=== PATIENT | male | born 1995 | race Caucasian/White ===

== ENCOUNTER 2018-09-18 00:51 | Emergency (ER) | payer SELFPAY ==
[~2018-09-18] VITALS: Ht 175.3 cm; Wt 64.5 kg
[2018-09-18 02:49] VITALS: BP 129/84
== END 2018-09-18 03:49 | disposition home or self-care (01) ==
LOC: EMS 00:53
DX: S09.90XA Unspecified injury of head, initial encounter (principal); M54.5 Low back pain; F12.90 Cannabis use, unspecified, uncomplicated; V03.00XA Pedestrian on foot injured in collision with car, pick-up truck or van in nontraffic accident, initial encounter; Y93.89 Activity, other specified; Y92.481 Parking lot as the place of occurrence of the external cause; Y99.8 Other external cause status
CPT/HCPCS: 70450; 72125; 72131

== ENCOUNTER 2018-11-04 21:40 | Emergency (ER) | payer SELFPAY ==
[~2018-11-04] VITALS: Ht 172.7 cm; Wt 63.6 kg
[2018-11-04 21:42] VITALS: BP 130/75
== END 2018-11-04 23:03 | disposition left against medical advice (07) ==
LOC: EMS 21:40
DX: M54.9 Dorsalgia, unspecified (principal); Z53.21 Procedure and treatment not carried out due to patient leaving prior to being seen by health care provider